=== PATIENT | male | born 1950 | race African-American/Black ===

== ENCOUNTER 2016-09-27 00:16 | Emergency (ER) | payer OTHER, MEDICAID ==
[~2016-09-27] VITALS: Ht 177.8 cm; Wt 103.0 kg
[2016-09-27 00:17] VITALS: BP 184/99
== END 2016-09-27 00:51 | disposition left against medical advice (07) ==
LOC: ER 00:21
DX: R55 Syncope and collapse (principal); Z53.21 Procedure and treatment not carried out due to patient leaving prior to being seen by health care provider